=== PATIENT | female | born 1960 | race Two or more races ===

== ENCOUNTER → 2018-02-19 | Outpatient (CLI) | payer MEDICAID | LOC: BMCIMAGING 14:35 | PROVIDERS: ATTEND Podiatrist Foot & Ankle Surgery | DX: M79.672 Pain in left foot (principal) ==

== ENCOUNTER 2018-06-29 14:14 | Day surgery (SDC) | payer MEDICAID ==
[~2018-06-29 14:14] MED LIST: BUPIVACAINE 0.5% 30 ML SDV ONE; LIDOCAINE 2% 5 ML SDV ONE; LR 1,000 ML IV ONE; ceFAZolin 1 GM/5 ML SYR ONE
[2018-06-29] MEDS ORDERED: ceFAZolin 2 GM/DEXTROSE 100 ML IV ONE (14:31)
--- NOTE | 2018-06-29 14:33 | PDHPUP ---
History & Physical Update H&P update statement: This history and physical update is based on an assessment of the patient which was completed after admission or registration (within 24 hours), but prior to the surgery/procedure. H&P update: H&P reviewed & patient examined, no change in patient's condition since H&P completed
[2018-06-29] MEDS ORDERED: MIDAZOLAM 2 MG/2 ML VIAL ONE (14:42)
[2018-06-29] MEDS ORDERED: MIDAZOLAM 2 MG/2 ML VIAL IVP ONE (14:56)
--- NOTE | 2018-06-29 14:57 | PDANEPAE ---
ANE Past Medical History - Cardiovascular History Hx Hypertension: No Hx Arrhythmias: No Hx Chest Pain: No Hx Coronary Artery / Peripheral Vascular Disease: No Hx CHF / Valvular Disease: No Hx Palpitations: No - Pulmonary History Hx COPD: No Hx Asthma/Reactive Airway Disease: No Hx Recent Upper Respiratory Infection: No Hx Oxygen in Use at Home: No Hx Sleep Apnea: No Sleep Apnea Screening Result - Last Documented: Positive - Neurologic History Hx Cerebrovascular Accident: No Hx Seizures: No Hx Dementia: No - Endocrine History Hx Diabetes: Yes Hypothyroid: No Hyperthyroid: No Obesity: severe Endocrine History Comment: TYPE 2 - Renal History Hx Renal Disorders: No - Liver History Hx Hepatic Disorders: No - Neurological & Psychiatric Hx Hx Neurological and Psychiatric Disorders: Yes Neurological / Psychiatric History Comment: DEPRESSION - Cancer History Hx Cancer: No - Congenital Disorder History Hx Congenital Disorders: No - GI History Hx Gastrointestinal Disorders: Yes Gastrointestinal History Comment: HX OF GASTRIC BYPASS - Other Health History Other Health History: PARTIAL/BRIDGE - Chronic Pain History Chronic Pain: No (ARTHRITIS TO RIGHT WRIST) - Surgical History Prior Surgeries: 10/16/15 PARTIAL HYSTERECTOMY AT [facility]. . [place]. GASTRIC BYPASS ANE Review of Systems Review of Systems: - Exercise capacity METS (RN): 4 METS ANE Patient History - Allergies Allergies/Adverse Reactions: Penicillins Allergy (Verified 01/24/16 16:30) Rash - Home Medications Home Medications: Citalopram 01/24/16 [Last Taken 06/29/18 06:45] buPROPion XL 01/24/16 [Last Taken 06/29/18 06:45] - NPO status NPO Since - Liquids (Date): 06/29/18 NPO Since - Liquids (Time): 07:00 NPO Since - Solids (Date): 06/28/18 NPO Since - Solids (Time): 22:00 - Smoking Hx Smoking Status: Never smoked - Family Anes Hx Family Hx Anesthesia Complications: NONE ANE Labs/Vital Signs - Vital Signs Blood Pressure: 140/85 Heart Rate: 69 Respiratory Rate: 14 O2 Sat (%): 95 Height: 160.02 cm Weight: 94.801 kg ANE Physical Exam - Airway Neck exam: decreased ROM Mallampati Score: Class 2 Mouth exam: poor dentition, dentures - Pulmonary Pulmonary: no respiratory distress - Cardiovascular Cardiovascular: regular rate and rhythym - ASA Status ASA Status: III ANE Anesthesia Plan Anesthesia Plan: GA w LMA, GA with mask
[2018-06-29] MEDS ORDERED: fentaNYL 100 MCG/2 ML INJ ONE (15:02)
[2018-06-29] MEDS ORDERED: LIDOCAINE 2% 5 ML SDV ONE (15:02)
[2018-06-29] MEDS ORDERED: PROPOFOL/EMULSION 500 MG/50 ML BOTTLE IV ONE ×2 (15:03→15:17)
[2018-06-29] MEDS ORDERED: OXYCODONE/APAP 5/325 TAB PO PRN (16:27)
--- NOTE | 2018-06-29 16:37 | POSTOPPROG ---
Post Op Note Date of Operation: 06/29/18 Surgeon: Coral Estrada [facility] Associate: None Anesthesia: Other (Specify) (LMAC 25 cc 0.5% Marcaine plain. 5cc 2% Lidocain plain.) Pre-op Diagnosis: L Predislocation syndrome, metatarsalgia 2nd MPJ Post-op Diagnosis: L Predislocation syndrome, metatarsalgia 2nd MPJ Indication: Painful 2nd MPJ, positional change of toe Procedure: L Plantar plate repair, 2nd metatarsal Imelda osteotomy Findings: L 2nd MPJ plantar plate tear Inf/Abcess present in the surg proc area at time of surgery?: No Depth: Deep Incisional (Fascial) EBL: Minimal Complications: None
[2018-06-29] MEDS ORDERED: NALOXONE HCL 0.4 MG/ML INJ IVP PRN (16:44)
[2018-06-29] MEDS ORDERED: fentaNYL 100 MCG/2 ML INJ IVP PRN (16:44)
--- NOTE | 2018-06-29 16:44 | POSTANESTH ---
Post Anesthetic Evaluation Cardiovascular Status: Normal, Stable Respiratory Status: Normal, Stable Pain Control: Adequate, Prn Tx Ordered Nausea/Vomiting Control: Adequate, Prn Tx Ordered Complications Possibly Related to Anesthesia: None Noted
--- NOTE | 2018-06-29 17:58 | GOP ---
[f rep st] OPERATIVE REPORT DATE OF OPERATION: 06/29/2018 SURGEON: Coral Estrada DPM ANESTHESIA: Local with monitored anesthesia care. ANESTHESIOLOGIST: Dr. Correia. PREOPERATIVE DIAGNOSIS: 1. 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 2. Left 2nd metatarsal phalangeal joint metatarsalgia. POSTOPERATIVE DIAGNOSIS: 1. 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 2. Left 2nd metatarsal phalangeal joint metatarsalgia. PROCEDURE PERFORMED: 1. Left 2nd metatarsal phalangeal joint plantar plate repair. 2. Left 2nd metatarsal Imelda osteotomy. FINDINGS: ESTIMATED BLOOD LOSS: Minimal. DESCRIPTION OF PROCEDURE: Under mild sedation, the patient was brought into the operating room, [facility] ed on the operating table in supine position. Following IV sedation, local anesthesia was obtained a bout the left foot using 20 cc of a 1:1 mixture of 0.5% Marcaine plain and 2% lidocaine plain. The f oot was then scrubbed, prepped, and draped in the usual aseptic manner. A sterile pneumatic ankle to urniquet was placed about the left ankle. Attention was then directed to the 2nd metatarsophalangeal joint where an incision was made lateral t o the extensor tendon and extended over the base of the proximal phalanx. The incision was deepened through subcutaneous tissue with care taken to identify and retract all vital neurovascular structure s. All bleeders were cauterized as necessary. A linear capsulotomy was then performed and the perio steum and capsule reflected medially and laterally. A sagittal saw was then used to create the Imelda osteotomy. The osteotomy was completed and the 2nd metatarsal head shifted proximally and temporaril y fixated with the guidewire K-wire. A 2nd wire was then placed from dorsal to plantar through the b ase of the proximal phalanx. The distractor was then used and the plantar plate evaluated. There wa s a large tear in the plantar plate noted. The remaining fibers of the plantar plate were released w ith the 15 blade. The plantar base of the proximal phalanx was rasped to help promote ligamentodesis . At this point, the Scorpion device was then used to place the 0 FiberWire through the plantar plat e. Once this was performed, the guidewire was then used to create suture glide holes. The suture wa s then passed from plantar to dorsal through the base of the proximal phalanx. At this point, the te mporary fixation was removed from the 2nd metatarsal, and the 2nd metatarsal head moved into appropri ate position and temporarily fixated. Two Arthrex snap-off screws were then placed across the osteot [place] site with excellent compression noted. The wound was then irrigated with copious sterile saline Ancef irrigation. The toe was then held in a plantar flexed position and the suture tightened over t he base of the proximal phalanx and tightened and tied. The suture was then cut. The toe was held i n a stable position. The wound was then irrigated again. The subcutaneous tissue and capsule were r epaired with 2-0 Vicryl. The subcuticular layer was repaired with 4-0 Monocryl and the skin with 4-0 prolene in a running subcuticular suture technique. The incision was dressed with Mastisol, Steri-S trips, Xeroform, 4 x 4 gauze, Sherry, and Brock wrap. The patient was then transferred to the recovery room with vital signs stable and vascular status int act. Following a period of postoperative monitoring, the patient will be discharged home, advised to ice and elevate her foot. She is advised to keep the dressing clean, dry, and intact. She will be weightbearing in the walking boot for the next 6 weeks. INJECTABLES: Preop injection of 20 cc of a 1:1 mixture 0.5% Marcaine plain and 2% lidocaine plain. Intraop injection of 10 cc of 0.5% Marcaine plain. MATERIALS: Arthrex snap-off screws 2 mm x 13 mm and 2 mm x 11 mm. 0 FiberWire for the plantar plate repair. /[id number]/MODL
[2018-06-29 19:03] VITALS: BP 143/76
== END 2018-06-29 18:30 | disposition home or self-care (01) ==
LOC: FSGY 14:14
PROVIDERS: ATTEND Podiatrist Foot & Ankle Surgery
DX: M25.872 Other specified joint disorders, left ankle and foot (principal); M77.42 Metatarsalgia, left foot; E11.9 Type 2 diabetes mellitus without complications; F32.9 Major depressive disorder, single episode, unspecified; G47.00 Insomnia, unspecified; N95.1 Menopausal and female climacteric states; G43.909 Migraine, unspecified, not intractable, without status migrainosus; Z79.4 Long term (current) use of insulin; Z98.84 Bariatric surgery status; Z88.0 Allergy status to penicillin
CPT/HCPCS: C1713; J0690; J2250; J2704; J3010

== ENCOUNTER → 2018-09-24 | Outpatient (CLI) | payer MEDICAID | LOC: BMCIMAGING 10:38 ==